=== PATIENT | male | born 1960 | race Two or more races ===

== ENCOUNTER 2021-06-03 05:34 | Emergency (ER) | payer OTHER, SELFPAY ==
[2021-06-03 05:35] VITALS: BP 185/90; PULSE 76; RESP 18; TEMP 37.1; O2SAT 96
[2021-06-03 05:41] VITALS: PULSE 75
--- NOTE | 2021-06-03 05:42 | ECG_ITS ---
Measurements Intervals [place] Rate: 75 P: 20 [place]: 159 QRS: 40 QRSD: 94 T: 49 QT: 367 QTc: 411 Interpretive Statements SINUS RHYTHM WITH SINUS ARRHYTHMIA NORMAL ECG NO PREVIOUS ECG AVAILABLE FOR COMPARISON Electronically Signed On 06-03-2021 15:54:32 CDT by Conrado Laureano M.D.
[2021-06-03 06:00] LABS: Basophils Percent Auto 0.5 % (0.2-1.2); Eosinophils Absolute Auto 0.2 K/mm3 (0-0.3); Hematocrit 43.8 % (42.0-52.0); Hemoglobin 14.4 g/dL (14.0-18.0); Immature Granulocyte Absolute 0.03 K/mm3 (0.00-0.031); Immature Granulocyte Percent A 0.5 % (0-0.5); Lymphocytes Absolute Auto 1.87 K/mm3 (0.9-3.2); Lymphocytes Percent Auto 30.7 % (18.3-44.2); Mean Corpuscular HGB Conc 32.9 g/dl (32-36); Mean Corpuscular Hemoglobin 29.1 pg (26-34); Mean Corpuscular Volume 88.5 fl (80-100); Mean Platelet Volume 10.2 fl (7.4-10.4); Monocytes Absolute Auto 0.4 K/mm3 (0.1-0.6); Monocytes Percent Auto 6.6 % (2.6-8.5); Neutrophils Absolute Auto 3.6 K/mm3 (1.3-6.7); Neutrophils Percent Auto 58.7 % (45.5-73.1); Platelet Count Result 251 k/mm3 (150-375); Red Blood Count 4.95 M/mm3 (4.6-6.20); Red Cell Distribution Width 13.3 % (11.5-14.5); White Blood Count 6.1 K/mm3 (4.5-10.0)
--- NOTE | 2021-06-03 06:10 | ED.WEAKNESS ---
HPI - Weakness General Chief complaint: Weakness Stated complaint: weakness and shaking Time Seen by Provider: 06/03/21 06:02 Source: patient Mode of arrival: EMS History of Present Illness HPI Narrative: Patient is a 60-year-old male here for refill prescription of this pramipexole. Patient states that he has not had the medication in a week causing him to have generalized weakness especially of the legs. Patient states that he moved from [place] 2 months ago and has not had a family doctor to follow-up with, consequently unable to get his medications filled. Patient was at [place] 2 days ago and had his carbidopa levodopa filled but they were not able to fill this pramipexole. Patient denies any speech or visual disturbance, focal weakness or numbness, chest pain, shortness of breath, abdominal pain, nausea, vomiting, diarrhea, fever or chills. Related Data Allergies Allergy/AdvReac Type Severity Reaction Status Date / Time No Known Allergies Allergy Unverified 06/03/21 05:40 Review of Systems Review of Systems: All systems reviewed & are unremarkable except as noted in HPI and below Constitutional: Constitutional: Denies body ache(s), Denies chills, Denies excessive sweating, Denies fatigue, Denies fever(s), Denies headache(s), Denies lethargy, Denies malaise and Denies weight loss Eyes: Eyes: Denies blurry vision, Denies change in vision and Denies loss of vision ENT: Denies dizziness, Denies ear discharge, Denies headache(s), Denies lip swelling, Denies epistaxis, Denies nasal congestion, Denies neck pain, Denies throat swelling and Denies tongue swelling Cardiovascular: Cardiovascular: Denies chest pain, Denies chest pain at rest, Denies chest pain with activity, Denies diaphoresis, Denies rapid heart rate, Denies edema, Denies irregular heart rhythm, Denies lightheadedness, Denies palpitations, Denies dyspnea and Denies dyspnea on exertion Respiratory: Respiratory: Denies chest congestion, Denies cough, Denies hemoptysis, Denies dyspnea and Denies dyspnea on exertion Gastrointestinal: Gastrointestinal: Denies abdominal pain, Denies melena, Denies hematochezia, Denies diarrhea, Denies nausea, Denies vomiting and Denies hematemesis Musculoskeletal: Musculoskeletal: Denies abnormal gait, Denies deformity, Denies joint swelling, Denies limited range of motion, Denies neck pain and Denies numbness Neurologic: Denies Abnormal speech present, Denies confusion, Denies dizziness, Denies headache(s), Denies focal weakness, Denies loss of vision, Denies numbness, Denies Other visual disturbances and Denies Sensory deficit (Neuro) Psychiatric: Psychiatric: Denies confusion, Denies depression, Denies auditory hallucinations, Denies homicidal ideation and Denies suicidal ideation Endocrine: Endocrine: Denies cold intolerance, Denies excessive sweating, Denies fatigue, Denies heat intolerance and Denies palpitations Hematologic/Lymphatic: Hematologic/Lymphatic: Denies easy bleeding and Denies easy bruising Allergic/Immunologic: Allergic/Immunologic: Denies lip swelling, Denies throat swelling and Denies tongue swelling PMFSH Comments Past medical history: Parkinson's disease Family history: Unknown Social history: Non-smoker no EtOH or drug use Exam Const: General: cooperative, healthy appearing, comfortable, no acute distress, well developed, alert and awake; No confusion Orientation/consciousness: oriented to person, oriented to place, oriented to time, patient oriented x3 and No confusion Limitations: no limitations HENMT: Head: normal to inspection, normocephalic and atraumatic Ears: hearing grossly normal bilaterally, TM normal on the right and TM normal on the left General nose exam: Normal external nose present, Normal nares present and No nasal discharge present Face and sinus: normal facial exam Mouth: Yes Normal oral and palatal mucosa present, Yes lip normal, Yes tongue normal and Yes oropharynx normal Throat: posterior oropha
[2021-06-03 06:35] LABS: Alanine Aminotransferase 9 U/L (4-50); Albumin Level 4.1 g/dL (3.5-5.1); Alkaline Phosphatase 131 U/L (38-126); Anion Gap 4 mmol/L (8-16); Aspartate Amino Transferase 28 U/L (17-59); Bilirubin,Total 0.3 mg/dL (0.2-1.3); Blood Urea Nitrogen 21 mg/dL (9-20); Calcium 8.5 mg/dL (8.4-10.2); Carbon Dioxide 30 mmol/L (22-30); Chloride 104 mmol/L (98-107); Estimated CRCL calculation 73 ml/min; Estimated Glomerular Filt Rate > 60; Glucose 244 mg/dL (65-110); Potassium 4.1 mmol/L (3.4-5.0); Sodium 138 mmol/L (137-145)
[2021-06-03 06:37] VITALS: BP 136/75; PULSE 66; RESP 18; O2SAT 100
[2021-06-03] MEDS: SODIUM CHLORIDE 0.9% IV 1,000 ML 999 ML IV CONT (06:40)
--- NOTE | 2021-06-03 07:55 | PC.NURSE ---
Pt ambulatory to the bathroom to provide urine sample
[2021-06-03 08:27] LABS: Add Urine Microscopic? YES; Appearance Urine Clear (Clear); Bilirubin Urine Negative (Negative); Blood Urine Negative (Negative); Color Urine Straw (Yellow); Glucose Urine UA 3+ mg/dL (Negative); Ketones Urine Trace mg/dL (Negative); Leukocyte Esterase Ur Negative LEU/UL (Negative); Mucus Urine Rare /lpf; Nitrate Urine Negative (Negative); Protein Urine 2+ mg/dL (Negative); RBC Urine 0-2 /hpf (0-2); Specific Grav Ur 1.011 (1.001-1.035); Urobilinogen Urine Negative mg/dL (<2.0); WBC Urine 0-3 /hpf
[2021-06-03 08:52] VITALS: BP 187/83; PULSE 71; RESP 18; O2SAT 100
== END 2021-06-03 08:54 | disposition home or self-care (01) ==
PROVIDERS: Emergency Provider Emergency Medicine
DX: G20 Parkinson's disease (principal); E11.65 Type 2 diabetes mellitus with hyperglycemia; T42.8X6A Underdosing of antiparkinsonism drugs and other central muscle-tone depressants, initial encounter; Z91.138 Patient's unintentional underdosing of medication regimen for other reason
CPT/HCPCS: 36415; 80053; 81001; 85025; 93005; 96360; 99283; J7030

== ENCOUNTER 2021-06-05 08:59 | Emergency (ER) | payer OTHER, SELFPAY ==
[2021-06-05 09:07] VITALS: BP 194/92; PULSE 81; RESP 16; TEMP 36.8; O2SAT 100
--- NOTE | 2021-06-05 09:31 | ED.GENADULT ---
HPI - General Adult General Chief complaint: Unspecified Stated complaint: med refill Time Seen by Provider: 06/05/21 09:06 Source: patient and family History of Present Illness HPI narrative: 60-year-old male presenting to the emergency department for medication refill. Patient traveled from [place] approximately 10 days ago but did lose his luggage. Patient states that his amantadine was in his luggage and has not yet been returned. Patient states he has been off this medication for 10 days. Patient was able to continue his other meds since he had both in his carrier. Patient states his amantadine as 100 mg, 3 times daily. Patient has taken this medication for approximately 5 years. Patient does have decreased movement but denies any chest pain shortness breath nausea vomiting or diarrhea. Patient has had no falls or injuries. Related Data Allergies Allergy/AdvReac Type Severity Reaction Status Date / Time No Known Allergies Allergy Unverified 06/03/21 05:40 Review of Systems Review of Systems: CONSTITUTIONAL: Denies fever, chills, or sweats. EYES: Denies visual changes, redness, or discharge. ENT: Denies rhinorrhea, congestion, sore throat, or otalgia. CARDIOVASCULAR: Denies chest pain, palpitations, or edema. RESPIRATORY: Denies cough or dyspnea. GASTROINTESTINAL: Denies abdominal pain, nausea, vomiting, or diarrhea. GENITOURINARY: Denies dysuria or hematuria. SKIN: Denies rash or itching. MUSCULOSKELETAL: Denies back pain, joint pain, or myalgia. NEUROLOGIC: off of his Parkinson's medications. All systems reviewed & are unremarkable except as noted in HPI and below Exam Narrative: APPEARANCE: Well appearing, no pain, no distress, well-nourished. HEAD: normocephalic, atraumatic. EYES: PERRLA/EOMI, conjunctivae clear. NOSE: Normal no drainage NECK: Supple. No adenopathy, no masses. RESPIRATORY: Airway patent, respirations nonlabored. Clear to auscultation bilaterally, no rales, rhonchi, wheezing. CARDIOVASCULAR: Regular rate and rhythm without murmurs rubs or gallops. ABDOMINAL: Soft, nontender, nondistended, normal bowel sounds MUSCULOSKELETAL: Moves all extremities. Strength/ROM intact, No edema, No calf tenderness. NEURO: Alert. Cranial nerves II through XII intact. Grossly normal neuro exam SKIN: Warm, dry. Normal Color Course Course Emergency Course: Patient was restarted on his amantadine, first dose was given in the ED. Patient was provided 2 weeks of his meds. Patient was encouraged to seek follow-up while he was here locally. If patient has any worsening symptoms he was instructed to present to the emergency department. All questions and concerns were addressed. Vital Signs Vital signs: Vital Signs Temperature 98.2 F 06/05/21 09:07 Pulse Rate 81 06/05/21 09:07 Respiratory Rate 16 06/05/21 09:07 Blood Pressure 194/92 H 06/05/21 09:07 Pulse Oximetry 100 06/05/21 09:07 Temperature 98.2 F 06/05/21 09:07 Pulse Rate 57 L 06/05/21 09:49 Respiratory Rate 16 06/05/21 09:49 Blood Pressure 141/70 H 06/05/21 09:49 Pulse Oximetry 100 06/05/21 09:07 Medical Decision Making Vital Signs Vital Signs: Vital Signs Temperature 98.2 F 06/05/21 09:07 Pulse Rate 81 06/05/21 09:07 Respiratory Rate 16 06/05/21 09:07 Blood Pressure 194/92 H 06/05/21 09:07 Pulse Oximetry 100 06/05/21 09:07 Temperature 98.2 F 06/05/21 09:07 Pulse Rate 57 L 06/05/21 09:49 Respiratory Rate 16 06/05/21 09:49 Blood Pressure 141/70 H 06/05/21 09:49 Pulse Oximetry 100 06/05/21 09:07 Discharge Plan Discharge Clinical Impression: Medication refill Patient Disposition: Home, Self-Care Condition: Stable Instructions: Antibiotic Form Additional Instructions: You stated your home dose of amantidine was 100 mg x 3 times a day. A prescription for 2 weeks was written for you. Continue taking your home medications. If you have any worsening symptoms or if you have any qu
[2021-06-05] MEDS: AMANTADINE HCL 100 MG CAPSULE PO (09:47)
[2021-06-05 09:49] VITALS: BP 141/70; PULSE 57; RESP 16
== END 2021-06-05 10:30 | disposition home or self-care (01) ==
PROVIDERS: Emergency Provider Emergency Medicine
DX: G20 Parkinson's disease (principal)
CPT/HCPCS: 99281; A9270

== ENCOUNTER 2022-10-16 07:33 | Emergency (ER) | payer OTHER, SELFPAY ==
[2022-10-16] VITALS (7 sets, daily range): BP systolic 143–156; BP diastolic 73–79; PULSE 66–87; RESP 16–20; TEMP 36.6; O2SAT 96–98
--- NOTE | ~2022-10-16 | CT_ITS ---
EXAMINATION: CT brain wo con DATE: 10/16/2022 08:22 INDICATION: Head injury TECHNIQUE: Computed tomography (CT) of the head was performed without intravenous contrast. Sagittal and coronal reconstructions were performed. The mA was adjusted according to patient size. Iterative reconstruction technique was employed. The dose-length product was 605.33 mGy-cm. COMPARISON: None FINDINGS: Prominent left periorbital subcutaneous hematoma. Partially visualized fractures of the medial and in ferior linares of the left orbit with small amount of gas in the intraorbital fat and high attenuation blood in the left frontal, ethmoid and maxillary sinuses. No calvarial fracture. No acute intracrania l hemorrhage, acute infarction or abnormal extra axial fluid collection. Ventricles are normal and sy mmetric. No mass/mass effect. Mastoid air cells and middle ear cavities are clear. IMPRESSION: 1. No calvarial fracture or acute intracranial process. 2. Left orbital wall fractures. See separate facial bone CT for further detail. Reviewed, dictated and finalized at location A.
--- NOTE | ~2022-10-16 | CT_ITS ---
EXAMINATION: 1. CT facial & cervical spine wo DATE: 10/16/2022 08:22 INDICATION: Head injury post fall with left eye swelling and neck pain TECHNIQUE: 1. Computed tomography (CT) of the maxillofacial region and of the cervical spine were performed with out intravenous contrast. Sagittal and coronal reconstructions of both regions were obtained. Automat ed exposure control and iterative reconstruction technique were employed. The dose-length product was 545.21 mGy-cm. COMPARISON: None. FINDINGS: Maxillofacial CT: Orbital fat. Left periorbital hematoma with prominent preseptal soft tissue swelling and stranding. T he globe appears intact. Fractures of the lamina papyracea of the medial wall of the left orbit as we ll as along the inferior wall of the left orbit disc. There is up to 3 mm caudal displacement of asse ssment of bleeding from a particularly on the right portion of the inferior wall. Possible nondisplac ed fracture of the left nasal bone. There is blood within the left frontal, maxillary and ethmoid sin uses. Numerous dental caries with multiple absent teeth and multiple periapical erosions along both t he mandible and maxilla. There is some debris/cerumen in the left external auditory canal. Mastoid ai r cells and middle ear cavities are clear. Cervical spine CT: Straightening of the normal cervical lordosis. 2 mm retrolisthesis C3 on C4. Vertebral body heights a re normal. No fracture. Severe disc height loss at C6-C7, moderate to severe disc height loss at C3-C 4, moderate disc height loss at C5-C6 and mild disc height loss at C4-C5 and T1-T2. Posterior disc os teophyte complexes resulting in mild central canal stenosis at C3-C4, C5-C6 and most prominently at C 6-C7. Multilevel moderate to severe cervical uncovertebral osteoarthritis and mild facet osteoarthrit is. This contributes to mild neural foraminal stenosis at multiple levels on both the left and right side of the cervical spine. Atherosclerotic calcification is at the bilateral carotid bulbs. Cervical soft tissues are otherwise unremarkable. Visualized portions of the apices of lungs are clear. IMPRESSION: 1. Fractures of the medial and inferior linares of the left orbit and possible additional nondisplaced fracture of the left nasal bone. 2. Extensive severe dental disease with many periapical erosions. 3. Severe cervical spondylosis without acute osseous abnormality. Reviewed, dictated and finalized at location A. IMPRESSION: 1. Fractures of the medial and inferior linares of the left orbit and possible ad ditional nondisplaced fracture of the left nasal bone. 2. Extensive severe dental disease with many periapical erosions. 3. Severe cervical spondylosis without acute osseous abnormality.
--- NOTE | 2022-10-16 07:36 | ED.GENADULT ---
HPI - General Adult General Chief complaint: Trauma Stated complaint: AMS/FALL History of Present Illness HPI narrative: 62-year-old male presenting to the ED for evaluation after being found on the side of the road. Patient was found by a passerby and was minimally responsive. Patient states that he was out for a walk and fell striking his face. Patient does have a history of Parkinson's and states he does have a seizure history. Due to a language barrier patient was unable to say whether he had a seizure or not. Patient only complaint is left-sided facial pain. He does live with a nephew Related Data Allergies Allergy/AdvReac Type Severity Reaction Status Date / Time No Known Allergies Allergy Unverified 10/16/22 08:06 Review of Systems Review of Systems: All systems reviewed & are unremarkable except as noted in HPI and below Exam Narrative: APPEARANCE: Well appearing, no pain, no distress, well-nourished. HEAD: normocephalic, left facial swelling and abrasions to face EYES: Left-sided facial hematoma, pressures in the right eye were 11 and 11, pressures in the left eye were 11 and 13 NOSE: Normal no drainage EARS:TMS clear with good light reflex. THROAT: Pharynx clear, no exudate. NECK: Supple. No adenopathy, no masses. RESPIRATORY: Airway patent, respirations nonlabored. Clear to auscultation bilaterally, no rales, rhonchi, wheezing. CARDIOVASCULAR: Regular rate and rhythm without murmurs rubs or gallops. ABDOMINAL: Soft, nontender, nondistended, normal bowel sounds MUSCULOSKELETAL: Moves all extremities. Strength/ROM intact, No edema, No calf tenderness. NEURO: Alert. Cranial nerves II through XII intact. Grossly intact with some baseline tremor SKIN: Abrasions and contusions to face Course Course Emergency Course: 62-year-old male presented the ED for evaluation after having a ground-level fall while out walking. Patient had significant swelling to his left eye but I was able to be examined. Exam is difficult due to the language barrier but patient does complain of some eye pain. Patient denied having double vision. I discussed the case with this was a trauma along with ophthalmology at [facility] and patient was accepted for transfer due to possible entrapment because of the orbital wall fractures Vital Signs Vital signs: Vital Signs Temperature 97.9 F 10/16/22 07:34 Pulse Rate 87 10/16/22 07:34 Respiratory Rate 20 10/16/22 07:34 Blood Pressure 156/79 H 10/16/22 07:34 Pulse Oximetry 96 10/16/22 07:34 Oxygen Delivery Room Air 10/16/22 07:34 Temperature 97.9 F 10/16/22 07:34 Pulse Rate 66 10/16/22 09:54 Respiratory Rate 16 10/16/22 09:54 Blood Pressure 146/73 H 10/16/22 09:54 Pulse Oximetry 96 10/16/22 09:54 Oxygen Delivery Room Air 10/16/22 07:34 Medical Decision Making Differential Diagnosis Differential Diagnosis: Intracranial hemorrhage, facial fracture, mandible fracture, orbital entrapment Vital Signs Vital Signs: Vital Signs Temperature 97.9 F 10/16/22 07:34 Pulse Rate 87 10/16/22 07:34 Respiratory Rate 20 10/16/22 07:34 Blood Pressure 156/79 H 10/16/22 07:34 Pulse Oximetry 96 10/16/22 07:34 Oxygen Delivery Room Air 10/16/22 07:34 Temperature 97.9 F 10/16/22 07:34 Pulse Rate 66 10/16/22 09:54 Respiratory Rate 16 10/16/22 09:54 Blood Pressure 146/73 H 10/16/22 09:54 Pulse Oximetry 96 10/16/22 09:54 Oxygen Delivery Room Air 10/16/22 07:34 Lab Data Lab results reviewed: Yes I reviewed the patient's lab results. 10/16/22 07:57 10/16/22 07:57 Labs: Lab Results 10/16/22 10/16/22 Range/Units 07:57 08:20 WBC 6.1 (4.5-10.0) K/mm3 RBC 5.04 (4.6-6.20) M/mm3 Hgb 14.5 (14.0-18.0) g/dL Hct 45.1 (42.0-52.0) % MCV 89.5 (80-100) fl MCH 28.8 (26-34) pg MCHC 32.2 (32-36) g/dl RDW 13.2 (11.5-14.5) % Plt Count 247 (150-375) k/mm3 MPV 9.7
--- NOTE | 2022-10-16 07:55 | ECG_ITS ---
Measurements Intervals [place] Rate: 77 P: 12 [place]: 182 QRS: 42 QRSD: 98 T: 36 QT: 376 QTc: 428 Interpretive Statements SINUS RHYTHM COMPARED TO ECG 06/03/2021 05:42:03 NO SIGNIFICANT CHANGES Electronically Signed On 10-16-2022 14:53:48 CDT by Le Godoy M.D.
[2022-10-16 08:07] LABS: Basophils Percent Auto 0.5 % (0.2-1.2); Eosinophils Absolute Auto 0.2 K/mm3 (0-0.3); Eosinophils Percent Auto 2.8 % (0-4.4); Hematocrit 45.1 % (42.0-52.0); Hemoglobin 14.5 g/dL (14.0-18.0); Immature Granulocyte Absolute 0.03 K/mm3 (0.00-0.031); Immature Granulocyte Percent A 0.5 % (0-0.5); Lymphocytes Absolute Auto 1.72 K/mm3 (0.9-3.2); Lymphocytes Percent Auto 28.3 % (18.3-44.2); Mean Corpuscular HGB Conc 32.2 g/dl (32-36); Mean Corpuscular Hemoglobin 28.8 pg (26-34); Mean Corpuscular Volume 89.5 fl (80-100); Mean Platelet Volume 9.7 fl (7.4-10.4); Monocytes Absolute Auto 0.4 K/mm3 (0.1-0.6); Monocytes Percent Auto 6.6 % (2.6-8.5); Neutrophils Absolute Auto 3.7 K/mm3 (1.3-6.7); Neutrophils Percent Auto 61.3 % (45.5-73.1); Platelet Count Result 247 k/mm3 (150-375); Red Blood Count 5.04 M/mm3 (4.6-6.20); Red Cell Distribution Width 13.2 % (11.5-14.5); White Blood Count 6.1 K/mm3 (4.5-10.0)
[2022-10-16 08:16] LABS: Ethanol < 10 mg/dL (<10)
[2022-10-16 08:18] LABS: Alanine Aminotransferase 13 U/L (6-50); Albumin Level 4.1 g/dL (3.5-5.1); Alkaline Phosphatase 96 U/L (38-126); Anion Gap 8 mmol/L (8-16); Aspartate Amino Transferase 25 U/L (17-59); Bilirubin,Total 0.4 mg/dL (0.2-1.3); Blood Urea Nitrogen 20 mg/dL (9-20); Calcium 9.2 mg/dL (8.4-10.2); Carbon Dioxide 26 mmol/L (22-30); Chloride 103 mmol/L (98-107); Estimated CRCL calculation 54 ml/min; Estimated Glomerular Filt Rate > 60; Glucose 168 mg/dL (65-110); Lactic Acid Reflex 3.9 mmol/L (0.7-2.0); Potassium 3.9 mmol/L (3.4-5.0); Sodium 137 mmol/L (137-145)
[2022-10-16 08:19] LABS: INR 0.9; Partial Thromboplastin Time 27.3 SECONDS (22.3-36.8); Prothrombin Time 12.9 Seconds (11.1-14.7)
[2022-10-16] MEDS: SODIUM CHLORIDE 0.9% IV 1,000 ML 999 ML IV CONT (08:27)
[2022-10-16 08:36] LABS: Appearance Urine Clear (Clear); Bacteria Urine None Seen /hpf; Bilirubin Urine Negative (Negative); Blood Urine Negative (Negative); Calcium Oxalate Crystals Urine Present /hpf; Color Urine Yellow (Yellow); Glucose Urine UA Trace mg/dL (Negative); Granular Casts Urine Present /lpf; Hyaline Casts Urine Present /lpf; Ketones Urine Trace mg/dL (Negative); Leukocyte Esterase Ur Negative LEU/UL (Negative); Nitrate Urine Negative (Negative); Non Pathogenic Casts >20; Protein Urine 4+ mg/dL (Negative); RBC Urine 0-2 /hpf (0-2); Specific Grav Ur 1.023 (1.001-1.035); Squamous Epithelial Cell Urine None seen /hpf (Few); WBC Urine 0-5 /hpf; pH Urine 5.5 (5.0-9.0)
[2022-10-16 08:41] LABS: Add Urine Microscopic? YES
--- NOTE | 2022-10-16 09:55 | PC.NURSE ---
This nurse made multiple attempts to rich out to pt's son, no success, nobody answered the phone, voice mail left.
[2022-10-16 11:04] LABS: Reflex Lactic Acid Yes or No Add Lactic
== END 2022-10-16 10:01 | disposition short-term general hospital (02) ==
PROVIDERS: Emergency Provider Emergency Medicine; PCP Family Medicine
DX: S02.32XA Fracture of orbital floor, left side, initial encounter for closed fracture (principal); S02.832A Fracture of medial orbital wall, left side, initial encounter for closed fracture; G20 Parkinson's disease; M47.812 Spondylosis without myelopathy or radiculopathy, cervical region; W18.30XA Fall on same level, unspecified, initial encounter
CPT/HCPCS: 36415; 70450; 70486; 72125; 80053; 80307; 81001; 83605; 85025; 85610; 85730; 93005; 96360; 99285; J7030